=== PATIENT | female | born 1975 | race Hispanic/Latino ===

== ENCOUNTER 2020-06-12 21:23 | Emergency (ER) | payer OTHER ==
[2020-06-12] MEDS ORDERED: LORAZEPAM 1 MG TABLET ONE (21:46)
== END 2020-06-12 22:12 | disposition home or self-care (01) ==
LOC: EDH 21:23
DX: F41.9 Anxiety disorder, unspecified (principal); Z90.49 Acquired absence of other specified parts of digestive tract; Z98.890 Other specified postprocedural states